=== PATIENT | female | born 1980 | race Caucasian/White ===

== ENCOUNTER 2024-12-28 02:59 | Emergency (ER) | payer OTHER ==
[~2024-12-28] VITALS: Ht 165.1 cm; Wt 71.4 kg
[2024-12-28] MEDS: RACEPINEPHrine 2.25% UD INHAL NEB ONE (03:17)
[2024-12-28] MEDS: diphenhydrAMINE 50MG/ML VIAL IV ONE (03:17)
[2024-12-28] MEDS: TRANEXAMIC ACID INJection 1,000 MG in D5W 100 ML IV ONE (03:17)
[2024-12-28 03:25] LABS: EOS % 1.1 % (0.0-3.0); HEMATOCRIT 26.3 % (36.0-47.0); HEMOGLOBIN 8.5 g/dl (12.0-15.5); LYMPH # 0.1 10^3/uL (1.5-5.0); LYMPH % 15.1 % (24.0-44.0); MEAN CORPUSCULAR HEMOGLOBIN 27.6 pg (27.0-33.0); MEAN CORPUSCULAR HGB CONC 32.3 g/dl (32.0-36.5); MEAN CORPUSCULAR VOLUME 85.4 fl (80.0-96.0); MONO # 0.7 10^3/uL (0.0-0.8); MONO % 73.1 % (2.0-8.0); NEUTROPHILS % 9.6 % (36.0-66.0); RED BLOOD COUNT 3.08 10^6/uL (4.00-5.40)
[2024-12-28 03:32] LABS: WHITE BLOOD COUNT 0.9 10^3/uL (4.0-10.0)
[2024-12-28 03:33] LABS: NEUTROPHILS # 0.1 10^3/uL (1.5-8.5); PLATELET COUNT, AUTOMATED 23 10^3/uL (150-450)
[2024-12-28 03:39] LABS: ABG BASE EXCESS -4.6 (-2.0-2.0); ABG O2 SATURATION 99.4 % (95.0-99.0); ABG PARTIAL PRESSURE CO2 25.4 mmHg (35.0-45.0); ABG PARTIAL PRESSURE O2 270.7 mmHg (75.0-100.0); ABG STANDARD HCO3 20.6 MMOL/L. (22.0-26.0); ABG TOTAL CO2 18.8 MMOL/L (22.0-29.0); ABG pH (ARTERIAL) 7.469 UNITS (7.350-7.450)
[2024-12-28 03:55] LABS: ALBUMIN 3.3 G/DL (3.2-5.2); ALKALINE PHOSPHATASE 50 U/L (35-104); ALT/SGPT 44 U/L (7.0-40); AST/SGOT 12 U/L (<34); BILIRUBIN,DIRECT 0.4 MG/DL (<0.4); BILIRUBIN,TOTAL 0.8 MG/DL (0.3-1.2); BLOOD UREA NITROGEN 14 MG/DL (9-23); CALCIUM LEVEL 8.7 MG/DL (8.5-10.1); CARBON DIOXIDE LEVEL 24 MMOL/L (20-31); CHLORIDE LEVEL 107 MMOL/L (98-107); CK-MB VALUE MASS < 1.0 NG/ML (<3.6); CPK CREATINE PHOSPHOKINASE 22 U/L (34-145); CREATININE FOR GFR 0.73 MG/DL (0.55-1.30); GLOMERULAR FILTRATION RATE > 60.0 (>58); GLUCOSE, FASTING 134 MG/DL (60-100); MB/CK RELATIVE INDEX 4.54 (< OR =4); POTASSIUM SERUM 3.6 MMOL/L (3.5-5.1); SODIUM LEVEL 141 MMOL/L (136-145); TOTAL PROTEIN 6.2 G/DL (5.7-8.2)
[2024-12-28 04:03] LABS: FREE T4 1.25 NG/DL (0.89-1.76)
[2024-12-28] MEDS ORDERED: ISOVUE-370 76% 100ML VIAL As Ordered ONE (04:16)
[2024-12-28] MEDS: RACEPINEPHrine 2.25% UD INHAL INH ONE (04:22)
[2024-12-28 05:17] LABS: CK-MB VALUE MASS < 1.0 NG/ML (<3.6); CPK CREATINE PHOSPHOKINASE 19 U/L (34-145); MB/CK RELATIVE INDEX 5.26 (< OR =4)
[2024-12-28 07:15] LABS: CK-MB VALUE MASS 1.3 NG/ML (<3.6); MB/CK RELATIVE INDEX 5.9 (< OR =4)
[2024-12-28 08:40] VITALS: BP 105/51; TEMP 98.1; O2SAT 100
== END 2024-12-28 08:43 | disposition short-term general hospital (02) ==
LOC: EDBD 02:59 → M ED 02:59
DX: J96.21 Acute and chronic respiratory failure with hypoxia (principal); Z88.1 Allergy status to other antibiotic agents; Z88.2 Allergy status to sulfonamides
CPT/HCPCS: 36600; 70491; 71045; 80048; 80076; 82550; 82553; 82803; 83605; 84439; 84443; 84484; 85025; 85049; 85055; 87486; 87581; 87633; 87798; 93005; 93041; 94760; 96374; 96375; 99285; J1200; Q9967